=== PATIENT | male | born 1990 | race Caucasian/White ===

== ENCOUNTER 2017-10-30 18:07 | Emergency (ER) | payer SELFPAY ==
--- NOTE | 2017-10-30 19:33 | RAD ---
LEFT KNEE FOUR VIEWS: 10/30/17 HISTORY: 27-year-old male with left knee pain following trauma. FINDINGS: There appears to be some soft tissue swelling anteriorly over the region or the knee. No fracture, dislocation, or other acute process. IMPRESSION: Minimal anterior soft tissue swelling without fracture or dislocation. POS: [facility]
== END 2017-10-30 19:52 ==
LOC: ERS 18:07
DX: S70.12XA Contusion of left thigh, initial encounter (principal); S80.811A Abrasion, right lower leg, initial encounter; F17.200 Nicotine dependence, unspecified, uncomplicated; V03.90XA Pedestrian on foot injured in collision with car, pick-up truck or van, unspecified whether traffic or nontraffic accident, initial encounter
CPT/HCPCS: 93005